=== PATIENT | male | born 1990 | race Caucasian/White ===

== ENCOUNTER 2023-08-17 21:04 | Emergency (ER) | payer SELFPAY ==
[~2023-08-17] VITALS: Ht 195.6 cm; Wt 90.7 kg
[2023-08-17] MEDS ORDERED: ONDANSETRON HCL INJ 2MG/ML 2ML 2 MG/ML VIAL IV STA ×2 (21:08→22:17)
[2023-08-17] MEDS ORDERED: Morphine 4mg INJECTION 4 MG/ML INJ IV STA (21:08)
[2023-08-17] MEDS ORDERED: ONDANSETRON HCL INJ 2MG/ML 2ML 2 MG/ML VIAL ONE (21:12)
[2023-08-17 21:42] LABS: BASOPHILS # (AUTO) 0.1 (0.0-0.1); BASOPHILS % 0.7 % (0.0-1.0); EOSINOPHILS # (AUTO) 0.4 (0.0-0.4); EOSINOPHILS % 4.9 % (0.0-6.0); HEMATOCRIT 40.6 % (38.2-49.6); HEMOGLOBIN 14.4 g/dL (14.0-18.0); LYMPHOCYTES # (AUTO) 3.6 (1.0-3.2); LYMPHOCYTES % 40.1 % (18.0-39.1); MEAN CORPUSCULAR HEMOGLOBIN 31.7 pg (28-32); MEAN CORPUSCULAR HGB CONC 35.5 g/dL (31-35); MEAN CORPUSCULAR VOLUME 89.4 fL (81-99); MONOCYTES # (AUTO) 0.7 (0.2-0.8); NEUTROPHILS # (AUTO) 4.1 (2.1-6.9); NEUTROPHILS % 45.7 % (38.7-80.0); PLATELET COUNT 329 x10e3/uL (140-360); RED BLOOD COUNT 4.54 x10e6/uL (4.3-5.7); RED CELL DISTRIBUTION WIDTH 11.5 % (11.7-14.4); WHITE BLOOD COUNT 9.03 x10e3/uL (4.8-10.8)
[2023-08-17 21:57] LABS: ALBUMIN 4.3 g/dL (3.5-5.0); ALBUMIN/GLOBULIN RATIO 1.5 (0.8-2.0); ANION GAP 13.5 mmol/L (8-16); BILIRUBIN,TOTAL 0.5 mg/dL (0.2-1.2); CALCIUM 8.9 mg/dL (8.4-10.2); CREATININE, SERUM 0.84 mg/dL (0.72-1.25); POTASSIUM 3.5 mmol/L (3.5-5.1); TOTAL PROTEIN 7.1 g/dL (6.5-8.1)
[2023-08-17] MEDS ORDERED: IOPAMIDOL 370 MG/ML 100 ML INFUS..BTL INJ ONE (22:00)
[2023-08-17] MEDS ORDERED: HYDROMORPHONE 1MG/1ML INJ IV STA (22:22)
[2023-08-17] MEDS ORDERED: CEPHALEXIN500 MG PO (22:24)
[2023-08-17] MEDS ORDERED: Morphine 4mg INJECTION 4 MG/ML INJ IV ONE (22:30)
[2023-08-17] MEDS ORDERED: ACETAMINOPHEN-1 EAC4 PO (22:43)
[2023-08-17 22:56] VITALS: O2SAT 100
[2023-08-18] MEDS ORDERED: SODIUM CHLORIDE 0.9% 1000ML 2,000 ML ONE (00:08)
== END 2023-08-17 23:10 | disposition home or self-care (01) ==
LOC: ER 21:09
DX: S71.101A Unspecified open wound, right thigh, initial encounter (principal); W34.09XA Accidental discharge from other specified firearms, initial encounter; Y92.89 Other specified places as the place of occurrence of the external cause; F17.210 Nicotine dependence, cigarettes, uncomplicated
CPT/HCPCS: 36415; 73706; 80053; 85025; 99284; J1170; J2270; J2405; J7030; Q9967